=== PATIENT | female | born 1940 | race Caucasian/White ===

== ENCOUNTER → 2020-06-13 | Day surgery (SDC) | payer OTHER ==
[2020-06-12 10:44] VITALS: BMI 27.8
[2020-06-13 12:15] VITALS: BP 173/84; PULSE 54; TEMP 98.1
== END | disposition home or self-care (01) ==
LOC: JASU-ENDO 04:45
PROVIDERS: ATTEND Internal Medicine
DX: Z53.8 Procedure and treatment not carried out for other reasons (principal)
CPT/HCPCS: 93005; 93010